=== PATIENT | female | born 1955 | race Hispanic/Latino ===

== ENCOUNTER 2023-05-29 15:24 | Inpatient (IN) | payer OTHER ==
[~2023-05-29] VITALS: Ht 154.9 cm; Wt 74.8 kg
[2023-05-29 16:41] LABS: BASOPHILS # (AUTO) 0.07 K/uL (0.00-0.20); BASOPHILS % (AUTO) 0.5 % (0.0-5.0); EOSINOPHILS # (AUTO) 0.07 K/uL (0.00-0.70); EOSINOPHILS % (AUTO) 0.5 % (0.0-8.0); HEMATOCRIT 32.8 % (36-48); IMMATURE GRANULOCYTE ABSOLUTE 2.02 K/uL (0-1); LYMPHOCYTES # (AUTO) 4.8 K/uL (1.0-4.8); LYMPHOCYTES % (AUTO) 30.7 % (21.0-51.0); MEAN CORPUSCULAR HGB CONC 33.5 g/dL (32.0-36.0); MEAN CORPUSCULAR VOLUME 95.3 fL (79-99); MONOCYTES # (AUTO) 1.3 K/uL (0.1-1.0); MONOCYTES % (AUTO) 8.3 % (3.0-13.0); NEUTROPHILS # (AUTO) 7.3 K/uL (1.8-7.7); NUCLEATED RED BLOOD CELLS 1.3 % (0.0-0.19); PLATELET COUNT (AUTO) 230 K/uL (130-400); RED BLOOD CELL COUNT(AUTO) 3.44 MIL/uL (4.00-5.50); RED CELL DISTRIBUTION WIDTH 20.2 % (11.0-15.5); WHITE BLOOD COUNT (AUTO) 15.5 K/uL (4.8-10.8)
[2023-05-29 17:02] LABS: ALBUMIN 3.2 g/dL (3.5-5.0); BILIRUBIN,TOTAL 0.7 mg/dL (0.2-1.0); CREATININE 3.2 mg/dL (0.5-1.5); POTASSIUM 3.1 mmol/L (3.5-5.1); TOTAL PROTEIN, SERUM 7.9 g/dL (6.0-8.3)
[2023-05-29] MEDS ORDERED: DEXTROSE 50%-WATER 50 ML DISP.SYRIN IV ONE (17:30)
[2023-05-29 18:44] LABS: APPEARANCE,URINE CLOUDY (CLEAR); BILIRUBIN,URINE NEGATIVE (NEGATIVE); COLOR,URINE YELLOW (YELLOW); GLUCOSE, URINE (UA) 200 mg/dL (NEGATIVE); KETONES,URINE NEGATIVE (NEGATIVE); LEUKOCYTE ESTERASE ,URINE 500 Leu/uL (NEGATIVE); NITRATE,URINE NEGATIVE (NEGATIVE); OCCULT BLOOD,URINE NEGATIVE (NEGATIVE); PROTEIN,URINE 10 mg/dL (NEGATIVE); UROBILINOGEN,URINE 0.2 mg/dL (0.2-1.0)
[2023-05-29 18:45] LABS: ADD UA MICROSCOPIC YES
[2023-05-29 18:47] LABS: BACTERIA,URINE RARE /HPF (None Seen); MUCUS,URINE RARE LPF (None Seen); SQUAMOUS EPITHELIAL CELL,UR MOD /HPF (0-2); UNCLASSIFIED CRYSTAL 1 /HPF (None Seen); WBC CLUMP FEW /HPF (0-1); WBC,URINE 51-100 /HPF (0-1)
[2023-05-29] MEDS ORDERED: CEFTRIAXONE 1G VIAL IVPB ONE (20:00)
[2023-05-29] MEDS ORDERED: POTASSIUM BICARB/CIT AC 25 MEQ TABLET.EFF PO ONE (20:30)
[2023-05-29 21:54] LABS: CREATININE,URINE RANDOM 162 mg/dL (30-135); SODIUM,URINE RANDOM 33 mmol/l (40-220)
[2023-05-29] MEDS ORDERED: HYDROMORPHONE 1 MG INJ IV PRN (22:00)
[2023-05-29] MEDS ORDERED: POTASSIUM CHLORIDE 10% ELIXIR 20 MEQ/15 ML UDCUP PO PRN (22:00)
[2023-05-29] MEDS ORDERED: POTASSIUM CHLORIDE 10MEQ/100ML 100 ML IV PRN (22:00)
[2023-05-29] MEDS ORDERED: KCL 20 MEQ ERTAB PO PRN (22:00)
[2023-05-29] MEDS ORDERED: ONDANSETRON 4MG INJ IV PRN (22:00)
[2023-05-29] MEDS ORDERED: CEFTRIAXONE 1G VIAL 1 GM in 0.9%NACL 50ML 50 ML IV SCH (22:00)
[2023-05-29] MEDS ORDERED: ACETAMINOPHEN 325 MG TAB PO PRN ×2 (22:00)
[2023-05-29] MEDS: CEFTRIAXONE 1G VIAL IVPB SCH (22:00)
[2023-05-29] MEDS ORDERED: HYDROCODONE/ACETAMINOPHEN 5/325 MG TAB PO PRN (22:00)
[2023-05-29] MEDS ORDERED: MAGNESIUM 2GM PREMIX 50ML 50 ML IV PRN (22:00)
[2023-05-29] MEDS: LACTATED RINGERS 1000ML 1,000 ML IV SCH ×2 (22:24→23:37)
[2023-05-29 23:25] VITALS: O2SAT 97
[2023-05-29] MEDS ORDERED: glibenclamida PO (23:56)
[2023-05-29] MEDS ORDERED: LOSA-422 PO (23:56)
[2023-05-30] VITALS (10 sets, daily range): BP systolic 108–148; BP diastolic 63–86; PULSE 63–86; RESP 17–21; O2SAT 94–96
[2023-05-30] MEDS ORDERED: GLUCAGON 1MG KIT 1 MG ML IM PRN
[2023-05-30] MEDS ORDERED: DEXTROSE 50%-WATER 50 ML DISP.SYRIN IV PRN
[2023-05-30 05:17] LABS: BASOPHILS % (AUTO) 0.7 % (0.0-5.0); EOSINOPHILS # (AUTO) 0.07 K/uL (0.00-0.70); EOSINOPHILS % (AUTO) 0.5 % (0.0-8.0); HEMATOCRIT 30.4 % (36-48); IMMATURE GRANULOCYTE ABSOLUTE 2.24 K/uL (0-1); LYMPHOCYTES # (AUTO) 3.6 K/uL (1.0-4.8); LYMPHOCYTES % (AUTO) 25.8 % (21.0-51.0); MEAN CORPUSCULAR HEMOGLOBIN 32.1 pg (27.0-33.0); MEAN CORPUSCULAR HGB CONC 32.9 g/dL (32.0-36.0); MEAN CORPUSCULAR VOLUME 97.4 fL (79-99); MONOCYTES # (AUTO) 0.9 K/uL (0.1-1.0); MONOCYTES % (AUTO) 6.8 % (3.0-13.0); NEUTROPHILS # (AUTO) 6.9 K/uL (1.8-7.7); NEUTROPHILS % (AUTO) 49.9 % (40.0-77.0); NUCLEATED RED BLOOD CELLS 1.4 % (0.0-0.19); PLATELET COUNT (AUTO) 205 K/uL (130-400); RED BLOOD CELL COUNT(AUTO) 3.12 MIL/uL (4.00-5.50); RED CELL DISTRIBUTION WIDTH 19.9 % (11.0-15.5); WHITE BLOOD COUNT (AUTO) 13.8 K/uL (4.8-10.8)
[2023-05-30 05:23] LABS: HEMOGLOBIN A1C 6.5 % (4.0-6.0)
[2023-05-30 05:37] LABS: CREATININE 2.7 mg/dL (0.5-1.5); MAGNESIUM 2.4 mg/dL (1.80-2.40); PHOSPHORUS 5.1 mg/dL (2.5-4.9); POTASSIUM 4.5 mmol/L (3.5-5.1); THYROID STIMULATING HORMONE 1.27 uIU/mL (0.36-3.74)
[2023-05-30] MEDS: INSULIN HUMULIN R 100 UNIT/ML 3ML SQ SCH ×5 (06:27→21:00)
[2023-05-30] MEDS: PANTOPRAZOLE 40 MG TAB DR PO SCH (09:36)
[2023-05-30] MEDS: HEPARIN 5,000 UNIT VIAL SQ SCH ×3 (09:37→20:14)
[2023-05-30 14:34] LABS: PROTEIN,URINE RANDOM 10.8 mg/dL (0-11.9)
[2023-05-30] MEDS: CEFTRIAXONE 1G VIAL IVPB SCH (20:14)
[2023-05-30] MEDS: LACTATED RINGERS 1000ML 1,000 ML IV SCH (20:14)
[2023-05-31 04:00] VITALS: BP 132/66; PULSE 68; RESP 18
[2023-05-31 04:19] LABS: BASOPHILS % (AUTO) 0.7 % (0.0-5.0); EOSINOPHILS # (AUTO) 0.14 K/uL (0.00-0.70); HEMATOCRIT 29.5 % (36-48); IMMATURE GRANULOCYTE ABSOLUTE 2.18 K/uL (0-1); LYMPHOCYTES # (AUTO) 3.1 K/uL (1.0-4.8); LYMPHOCYTES % (AUTO) 23.3 % (21.0-51.0); MEAN CORPUSCULAR HEMOGLOBIN 32.3 pg (27.0-33.0); MEAN CORPUSCULAR HGB CONC 33.9 g/dL (32.0-36.0); MEAN CORPUSCULAR VOLUME 95.2 fL (79-99); MONOCYTES # (AUTO) 0.8 K/uL (0.1-1.0); MONOCYTES % (AUTO) 5.6 % (3.0-13.0); NEUTROPHILS # (AUTO) 7.1 K/uL (1.8-7.7); NEUTROPHILS % (AUTO) 53.2 % (40.0-77.0); NUCLEATED RED BLOOD CELLS 1.3 % (0.0-0.19); PLATELET COUNT (AUTO) 241 K/uL (130-400); RED CELL DISTRIBUTION WIDTH 19.9 % (11.0-15.5); WHITE BLOOD COUNT (AUTO) 13.4 K/uL (4.8-10.8)
[2023-05-31 04:47] LABS: CREATININE 1.8 mg/dL (0.5-1.5); PHOSPHORUS 4.8 mg/dL (2.5-4.9)
[2023-05-31] MEDS: INSULIN HUMULIN R 100 UNIT/ML 3ML SQ SCH (05:41)
[2023-05-31 07:20] VITALS: BP 144/86; PULSE 83; RESP 21
[2023-05-31 08:00] VITALS: O2SAT 96
[2023-05-31] MEDS: PANTOPRAZOLE 40 MG TAB DR PO SCH (08:43)
[2023-05-31] MEDS: HEPARIN 5,000 UNIT VIAL SQ SCH (08:50)
[2023-05-31] MEDS ORDERED: CEPH500B PO (10:44)
[2023-06-02 15:12] LABS: ALBUMIN (PEP) 2.7 g/dL (2.9-4.4)
== END 2023-05-31 12:55 | disposition home or self-care (01) | DRG 683 ==
LOC: EDBD 15:24 → EDH 15:24 → EDHIP 15:25 → 4DH 23:25
PROVIDERS: ADMIT Internal Medicine; ATTEND Internal Medicine
DX: N17.0 Acute kidney failure with tubular necrosis (principal); C79.51 Secondary malignant neoplasm of bone; E11.649 Type 2 diabetes mellitus with hypoglycemia without coma; N13.6 Pyonephrosis; E11.22 Type 2 diabetes mellitus with diabetic chronic kidney disease; D64.9 Anemia, unspecified; E03.9 Hypothyroidism, unspecified; E87.6 Hypokalemia; I12.9 Hypertensive chronic kidney disease with stage 1 through stage 4 chronic kidney disease, or unspecified chronic kidney disease; K57.30 Diverticulosis of large intestine without perforation or abscess without bleeding; M81.0 Age-related osteoporosis without current pathological fracture; N18.9 Chronic kidney disease, unspecified; Z90.49 Acquired absence of other specified parts of digestive tract; Z79.84 Long term (current) use of oral hypoglycemic drugs
CPT/HCPCS: 36415; 74176; 76770; 80048; 80053; 81001; 82570; 82948; 83036; 83690; 83735; 83935; 84100; 84156; 84165; 84300; 84443; 84484; 85025; 87088; 96365; 96375; G0378; J0696; J1644; J7070